=== PATIENT | female | born 1950 | race Hispanic/Latino ===

== ENCOUNTER 2017-12-18 21:51 | Emergency (ER) | payer MEDICARE ==
[~2017-12-18 21:51] MED LIST: CELLCEPT250 MG PO; COUMADIN5 MG PO; COUMADIN7.5 MG; CYCLOSPORINE MO25 MG; ELIQUIS PO; LOPRESSOR25 MG; NEORAL25 MG PO
--- OUTSIDE RECORDS SUMMARY | 2017-12-18 21:53 | XMS REPORT | Clinical Summary ---
Author Author [facility] Address Unknown Phone Unavailable Care Team Providers Care [employer] Name Role Phone PCP Unavailable Allergies Active Allergy Reactions Severity Noted Date Comments Iodine And Iodide Rash High 10/16/2014 Containing Products Digoxin Other (See Comments) Low 11/30/2015 Pt received IV digoxin and experienced a burning sensation possibly d/t infiltration Current Medications Prescription Sig. Disp. Refills Start End Date Status Date cycloSPORINE modified Take 50 mg by mouth 2 Active (NEORAL) 25 MG capsule (two) times daily . metoprolol (LOPRESSOR) 25 Take 25 mg by mouth 2 Active MG tablet (two) times daily. apixaban (ELIQUIS) 5 mg Take 1 tablet (5 mg 60 tablet 0 12/06/19 Active Tab tablet total) by mouth 2 (two) 16 times daily. Active Problems Problem Noted Date Atrial fibrillation with rapid ventricular response (HCC) 12/01/2015 Shortness of breath 11/29/2015 Immunizations Name Dates Previously Given Next Due Pneumococcal 11/30/2015 Polysaccharide (Pneumovax) Family History Medical History Relation Name Comments Asthma Sister Relation Name Status Comments Sister Social History Tobacco Use Types Packs/Day Years Used Date Never Smoker Alcohol Use Drinks/Week oz/Week Comments No Sex Assigned at Date Recorded Not on file Last Filed Vital Signs Not on file Plan of Treatment Health Maintenance Due Date Last Done Comments INFLUENZA VACCINE 08/04/2017 Results Not on fileafter 12/17/2016
== END 2017-12-18 22:09 | disposition left against medical advice (07) ==
LOC: ER 21:51
DX: R52 Pain, unspecified (principal)

== ENCOUNTER 2025-05-25 12:33 | Inpatient (IN) | payer MEDICARE ==
[~2025-05-25] VITALS: Ht 152.4 cm; Wt 54.0 kg
[2025-05-25 15:59] VITALS: TEMP 98.5
[2025-05-25 16:13] LABS: BASOPHILS % 0.0 % (0.0-1.0); EOSINOPHILS % 0.3 % (0.0-6.0); LYMPHOCYTES % 13.5 % (18.0-39.1); MONOCYTES % 22.4 % (4.4-11.3); NEUTROPHILS % 62.5 % (38.7-80.0); RED CELL DISTRIBUTION WIDTH 17.4 % (11.7-14.4)
[2025-05-25 16:33] LABS: INR 1.56
[2025-05-25 16:58] LABS: EST GLOMERULAR FILTRATION RATE 24.0 ML/MIN (>=60)
[2025-05-25] MEDS: Vancomycin IV 1 GM in SODIUM CHLORIDE 0.9% 250ML 250 ML IV ONE (17:49)
[2025-05-25 18:16] LABS: LEUKOCYTE ESTERASE ,URINE MODERATE (NEGATIVE); PROTEIN,URINE DIPSTICK NEGATIVE (NEGATIVE); URINE UROBILINOGEN 0.2 mg/dL (0.2 - 1)
[2025-05-25 18:35] LABS: EPITHELIAL CELLS,URINE RARE /LPF; WBC,URINE (MAN) >50 /HPF (0-5)
[2025-05-25] MEDS: HYDROCODONE/APAP 5MG-325MG TAB PO ONE (19:01)
[2025-05-25] MEDS: METOPROLOL TARTRATE 25 MG TAB PO ONE (19:02)
[2025-05-25 19:30] VITALS: PULSE 95; RESP 17
[2025-05-25 21:35] VITALS: BP 115/73; PULSE 105; RESP 16; TEMP 98.1; O2SAT 96
[2025-05-25 22:00] VITALS: BP 115/73; PULSE 105; RESP 16; TEMP 98.1; O2SAT 96
[2025-05-26 00:50] VITALS: BP 115/73; PULSE 105; RESP 16; TEMP 98.1; O2SAT 96
[2025-05-26 08:25] VITALS: BP 110/65; PULSE 83; RESP 19; TEMP 97.4; O2SAT 95
[2025-05-26] MEDS: MYCOPHENOLATE MOFETIL 250 MG CAP PO SCH ×2 (09:03→17:26)
[2025-05-26] MEDS: METOPROLOL TARTRATE 25 MG TAB PO SCH (09:03)
[2025-05-26 11:29] VITALS: BP 117/65; PULSE 92; RESP 16; TEMP 97.8; O2SAT 100
[2025-05-26] MEDS: LINEZOLID 600 MG/D5W 300ML 300 ML IV SCH (12:52)
[2025-05-26 15:39] VITALS: BP 122/62; PULSE 93; RESP 18; TEMP 97.4; O2SAT 100
[2025-05-26 20:00] VITALS: BP 113/64; PULSE 109; RESP 17; TEMP 98.9; O2SAT 100
[2025-05-26 21:00] VITALS: BP 113/64; PULSE 109; RESP 17; TEMP 98.9; O2SAT 100
[2025-05-27] VITALS (7 sets, daily range): BP systolic 112–120; BP diastolic 60–79; PULSE 61–105; RESP 16–20; TEMP 97.5–98.7; O2SAT 100
[2025-05-27] MEDS: ONDANSETRON HCL INJ 2MG/ML 2ML 2 MG/ML VIAL IV PRN (12:12)
[2025-05-28] VITALS (9 sets, daily range): BP systolic 111–137; BP diastolic 64–74; PULSE 77–100; RESP 15–20; TEMP 97.6–98.3; O2SAT 98–100
[2025-05-28] MEDS: CEFTRIAXONE 2 GM in SODIUM CHLORIDE 0.9% 100 ML IV SCH (09:54)
[2025-05-28] MEDS: METOPROLOL TARTRATE INJ 1 MG/ML VIAL IV ONE (09:55)
[2025-05-28] MEDS: SODIUM CHLORIDE 0.9% 1000ML 1,000 ML IV SCH (14:57)
[2025-05-28] MEDS ORDERED: CYCLOSPORINE 25 MG CAP PO SCH (17:00)
[2025-05-29] VITALS: BP 118/72; PULSE 100; RESP 20; TEMP 98; O2SAT 100
[2025-05-29 04:00] VITALS: BP 111/56; PULSE 87; RESP 20; TEMP 97.6; O2SAT 100
[2025-05-29 06:05] LABS: CREATININE,URINE RANDOM 53.25 mg/dL (47-110); TOTAL PROTEIN, URINE 27.7 mg/dL (1-14)
[2025-05-29 07:25] LABS: EST GLOMERULAR FILTRATION RATE 24.0 ML/MIN (>=60)
[2025-05-29 07:41] VITALS: BP 116/69; PULSE 92; RESP 16; TEMP 97.4; O2SAT 96
[2025-05-29 08:18] VITALS: BP 116/69; PULSE 92; RESP 16; TEMP 97.4; O2SAT 96
[2025-05-29] MEDS: PREDNISONE 5 MG TAB PO SCH (08:58)
[2025-05-29] MEDS: METOPROLOL SUCCINATE 50 MG TAB XL PO SCH (08:58)
[2025-05-29 11:54] VITALS: BP 115/55; PULSE 82; RESP 17; TEMP 97.1; O2SAT 98
[2025-05-29 15:50] VITALS: BP 126/71; PULSE 75; RESP 19; TEMP 98.5; O2SAT 97
== END 2025-05-29 16:10 | disposition other institution (70) | DRG 559 ==
LOC: ER 13:48 → ERHOLD 18:33 → MED/SURG 20:18
PROVIDERS: ADMIT Internal Medicine; ATTEND Internal Medicine
DX: T84.52XA Infection and inflammatory reaction due to internal left hip prosthesis, initial encounter (principal); I13.0 Hypertensive heart and chronic kidney disease with heart failure and stage 1 through stage 4 chronic kidney disease, or unspecified chronic kidney disease; I50.23 Acute on chronic systolic (congestive) heart failure; D84.821 Immunodeficiency due to drugs; L03.116 Cellulitis of left lower limb; N17.9 Acute kidney failure, unspecified; N39.0 Urinary tract infection, site not specified; Z94.0 Kidney transplant status; M86.69 Other chronic osteomyelitis, multiple sites; L02.416 Cutaneous abscess of left lower limb; T84.51XA Infection and inflammatory reaction due to internal right hip prosthesis, initial encounter; R62.7 Adult failure to thrive; N18.9 Chronic kidney disease, unspecified; B96.1 Klebsiella pneumoniae [K. pneumoniae] as the cause of diseases classified elsewhere; D63.1 Anemia in chronic kidney disease; I48.91 Unspecified atrial fibrillation; E78.00 Pure hypercholesterolemia, unspecified; I73.9 Peripheral vascular disease, unspecified; R53.81 Other malaise; H54.8 Legal blindness, as defined in USA; Y83.1 Surgical operation with implant of artificial internal device as the cause of abnormal reaction of the patient, or of later complication, without mention of misadventure at the time of the procedure; Z79.01 Long term (current) use of anticoagulants; Z79.60 Long term (current) use of unspecified immunomodulators and immunosuppressants; Z79.52 Long term (current) use of systemic steroids; I25.2 Old myocardial infarction; Z90.710 Acquired absence of both cervix and uterus; Z91.041 Radiographic dye allergy status
CPT/HCPCS: 36415; 71046; 76770; 76882; 80053; 81001; 82570; 83735; 83880; 84156; 84484; 85025; 85610; 85730; 87040; 87071; 87075; 87086; 87186; 87205; 93005; 93306; 99252; 99284; J0696; J2020; J2405; J3373; J7030; J7050; J7512